=== PATIENT | female | born 1990 | race American Indian/Alaskan Native ===

== ENCOUNTER 2017-06-02 12:47 | Emergency (ER) | payer OTHER ==
[2017-06-02 12:47] VITALS: BMI 26.4
[2017-06-02 12:59] VITALS: RESP 18; O2SAT 100
[2017-06-02] MEDS ORDERED: Sodium Chloride 0.9% 1,000 ML IV ONE (13:21)
[2017-06-02 13:53] LABS: BASO # 0.1 K/uL (0.0-0.2); BASO % 0.7 % (0.0-2.0); EOS # 0.2 K/uL (0.0-0.7); EOS % 2.7 % (0.0-4.0); HEMATOCRIT 36.4 % (34.0-47.0); LYMPH # 3.1 K/uL (1.0-4.3); LYMPH % 39.6 % (20.0-40.0); MEAN CELL VOLUME 83.9 fL (81.0-99.0); MEAN CORPUSCULAR HEMOGLOBIN 27.4 pg (27.0-31.0); MEAN CORPUSCULAR HGB CONC 32.7 g/dL (33.0-37.0); MEAN PLATELET VOLUME 8.7 fL (7.2-11.7); MONO # 0.6 K/uL (0.0-0.8); MONO % 8.1 % (0.0-10.0); RED CELL DISTRIBUTION WIDTH 16.3 % (11.5-14.5); WHITE BLOOD COUNT 7.9 K/uL (4.8-10.8)
[2017-06-02] MEDS ORDERED: Sodium Chloride 0.9% 1,000 ML ONE (13:59)
[2017-06-02 14:04] LABS: RBC URINE 8 /hpf (0-3); URINE BACTERIA OCC (<OCC); URINE BILIRUBIN NEGATIVE (NEGATIVE); URINE BLOOD 2+ (NEGATIVE); URINE COLOR Yellow (YELLOW); URINE GLUCOSE (UA) NORMAL (Normal); URINE KETONE NEGATIVE (NEGATIVE); URINE LEUKOCYTE ESTERASE 2+ Leu/uL (Negative); URINE PROTEIN NEGATIVE (NEGATIVE); URINE UROBILINOGEN NORMAL mg/dL (0.2-1.0); WBC URINE 38 /hpf (0-5)
[2017-06-02 14:31] LABS: CHLORIDE 99 mmol/L (98-107); POTASSIUM 3.8 mmol/L (3.6-5.2); SODIUM 133 mmol/L (132-148)
[2017-06-02 14:33] LABS: BILIRUBIN,TOTAL 0.5 mg/dL (0.2-1.3); GFR AFRICAN-AMERICAN > 60
[2017-06-02 14:34] LABS: ALB/GLOB RATIO 1.1 (1.0-2.1); ALKALINE PHOSPHATASE 52 U/L (38-126); ALT/SGPT 34 U/L (9-52); AST/SGOT 30 U/L (14-36); BLOOD UREA NITROGEN 10 mg/dL (7-17); CALCIUM 8.8 mg/dl (8.6-10.4); CARBON DIOXIDE 24 mmol/L (22-30); GLUCOSE,RANDOM 85 mg/dL (65-105); TOTAL PROTEIN 7.8 g/dL (6.3-8.3)
--- NOTE | 2017-06-02 15:10 | C.PDOC ---
Time Seen by Provider: 06/02/17 13:11 Chief Complaint (Nursing): Abdominal Pain History Per: Patient Onset/Duration Of Symptoms: Days (4), Intermittent Episodes Current Symptoms Are (Timing): Still Present Severity: Moderate Location Of Pain/Discomfort: Epigastric, Suprapubic Quality Of Discomfort: Unable To Describe, "Pain" Associated Symptoms: Nausea, Constipation (?), Urinary Symptoms Alleviating Factors: None Recent travel outside of the [place]: No Additional History Per: Prior Records Abnormal Vaginal Bleeding: No Past Medical History Reviewed: Historical Data, Nursing Documentation, Vital Signs Vital Signs: Last Vital Signs Temp 98.5 F 06/02/17 12:55 Pulse 81 06/02/17 12:55 Resp 18 06/02/17 12:55 BP 125/87 06/02/17 12:55 Pulse Ox 100 06/02/17 12:55 - Medical History PMH: No Chronic Diseases Surgical History: No Surg Hx - [facility] Procedures ARTIF RUPT MEMBRANES NEC (06/17/13) EPISIOTOMY (06/17/13) Family History: States: Unknown Family Hx - Social History Hx Alcohol Use: Yes Hx Substance Use: No Review Of Systems Except As Marked, All Systems Reviewed And Found Negative. Constitutional: Negative for: Fever, Chills, Weakness Cardiovascular: Negative for: Chest Pain Respiratory: Negative for: Shortness of Breath Gastrointestinal: Positive for: Abdominal Pain. Negative for: Vomiting, Melena , Hematochezia, Hematemesis Genitourinary: Positive for: Frequency Musculoskeletal: Positive for: Back Pain. Negative for: Neck Pain Skin: Negative for: Rash Neurological: Negative for: Weakness, Numbness Physical Exam - Physical Exam Appears: Non-toxic, No Acute Distress Skin: Normal Color, Warm, Dry, No Rash Head: Atraumatic, Normacephalic Eye(s): bilateral: Normal Inspection, PERRL, EOMI Neck: Normal ROM, Supple Cardiovascular: Rhythm Regular Respiratory: Normal Breath Sounds, No Accessory Muscle Use Gastrointestinal/Abdominal: Soft, No Tenderness, No Distention Back: No CVA Tenderness Extremity: Normal ROM Neurological/Psych: Oriented x3, Normal Motor, Normal Sensation ED Course And Treatment - Laboratory Results Result Diagrams: 06/02/17 13:49 06/02/17 14:13 Interpretation Of Abnormal: UTI, urine C&S sent. Urine POC: Negative O2 Sat by Pulse Oximetry: 100 Pulse Ox Interpretation: Normal Progress - Interventions Interventions:: Observation, Intravenous fluid - Medications Administered Intravenous: Antiemetic, H-2 tejas - Data Reviewed Data Reviewed: Lab, Old records - Patient Status Patient status: Mostly improved - Continuity of Care Discussed patient case with:: Patient, ED Nurse - Patient Plan Patient Plan: Discharge, F/U with PCP Disposition Counseled Patient/Family Regarding: Studies Performed, Diagnosis, Need For Followup, Rx Given - Disposition Disposition: HOME/ ROUTINE Disposition Time: 15:14 Condition: IMPROVED Additional Instructions: Drink plenty of fluids. Follow up with your doctor this week. Return to the ER if you develop fever, chills, vomiting, worsening of symptoms or if you have any other concerns. Prescriptions: Ciprofloxacin [Cipro] 1 tab PO BID #14 tab Famotidine [Pepcid] 20 mg PO BID #30 tab Instructions: Urinary Tract Infection in Women (ED) - Clinical Impression Clinical Impression: Abdominal pain, UTI (urinary tract infection)
[2017-06-02] MEDS ORDERED: Alum-Mag Hydrox-Simethicone Susp (30 mL) PO STA (15:33)
[2017-06-02] MEDS ORDERED: Aluminum Hydroxide/Magnesium Hydroxide Susp (30 mL) ONE (15:35)
[2017-06-02 15:49] VITALS: BP 120/83; PULSE 59; TEMP 97.5
== END 2017-06-02 15:51 | disposition home or self-care (01) ==
LOC: C.ER 12:47
DX: N39.0 Urinary tract infection, site not specified (principal); R10.13 Epigastric pain
CPT/HCPCS: 80053; 81001; 83690; 84703; 85025; 87086; 87181; 96361; 96374; 96375; 99285; J2765; J7040

== ENCOUNTER 2017-10-09 14:28 | Emergency (ER) | payer OTHER ==
[2017-10-09 14:28] VITALS: BMI 26.4
[2017-10-09 14:47] VITALS: RESP 16; TEMP 98.3
--- NOTE | 2017-10-09 15:03 | C.PDOC ---
History Of Present Illness CC: "nausea and vomiting" HPI: 27 year old female at 12 weeks 4 days who presents to the ED for nausea and vomiting that started on Sunday. Patient states she has had nausea since July however she was able to eat. She states the last time she was able to keep food down was on Sunday. She states she has been vomiting about 8x per day since Sunday. She also states she has a headache that started on Sunday that is currently a 6/10 and at its worse it is a 10/10. She has tried taking Excedrin and Tylenol with minimal relief. She normally does not have headaches or migraines. She has not had care but she states she is trying to schedule an appointment with [facility]. She also states she has had a stinging pain when she urinates for the past 2 weeks. She tried going to the clinic but she could not be seen. She denies fever, hematuria, vaginal discharge, vaginal bleeding or odor. 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 denies: Fever, Chills, Diarrhea, Loss Of Appetite Abnormal Vaginal Bleeding: No Past Medical History Vital Signs: Last Vital Signs Temp 98.3 F 10/09/17 14:44 Pulse 109 H 10/09/17 14:44 Resp 16 10/09/17 14:44 BP 122/85 10/09/17 14:44 Pulse Ox 98 10/09/17 15:31 - [facility] Procedures ARTIF RUPT MEMBRANES NEC (06/17/13) EPISIOTOMY (06/17/13) Family History: States: Unknown Family Hx - Social History Hx Alcohol Use: No Hx Substance Use: No - Immunization History Hx Influenza Vaccination: No Review Of Systems Constitutional: Negative for: Fever, Chills, Sweats, Weakness Cardiovascular: Negative for: Chest Pain, Palpitations, Light Headedness Respiratory: Negative for: Cough, Shortness of Breath Gastrointestinal: Positive for: Nausea, Vomiting, Constipation. Negative for: Abdominal Pain, Diarrhea Genitourinary: Positive for: Dysuria, Frequency Neurological: Negative for: Dizziness Physical Exam - Physical Exam Appears: Well Skin: Normal Color Head: Atraumatic Eye(s): bilateral: Normal Inspection, PERRL, EOMI Oral Mucosa: Dry Cardiovascular: Rhythm Regular Respiratory: Normal Breath Sounds, No Accessory Muscle Use, No Rales, No Rhonchi , No Stridor, No Wheezing Gastrointestinal/Abdominal: Normal Exam, Bowel Sounds (normal), Soft, No Tenderness, No Distention, No Guarding Extremity: No Tenderness, No Pedal Edema, No Calf Tenderness Neurological/Psych: Oriented x3, Normal Speech, Normal Cognition ED Course And Treatment - Laboratory Results Result Diagrams: 10/09/17 16:20 10/09/17 16:20 O2 Sat by Pulse Oximetry: 98 Medical Decision Making Medical Decision Making: Nausea and Vomiting - Zofran 4mg IV once - IV fluids 1L Dysuria secondary to UTI - CBC WNL - UA: + WBC , +bacteria, + leukocyte esterase Hyponatremia secondary to vomiting - CMP: Na 131 Disposition Discussed With DrAna Laura: Anna Sauer Deepa - Disposition Disposition: HOME/ ROUTINE Disposition Time: 17:25 Condition: GOOD Additional Instructions: Patient is stable for discharge home. 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 Please return to the ED if symptoms return or worsen. Forms: [employer] (Yemeni) Print Language: HUNGARIAN - POA Present On Arrival: None - Clinical Impression Clinical Impression: Nausea & vomiting
[2017-10-09] MEDS ORDERED: Sodium Chloride 0.9% 1,000 ML IV ONE (15:24)
[2017-10-09 16:29] LABS: HEMOGLOBIN 12.7 g/dL (11.0-16.0); MEAN CELL VOLUME 83.8 fL (81.0-99.0); MEAN CORPUSCULAR HEMOGLOBIN 27.6 pg (27.0-31.0); MEAN CORPUSCULAR HGB CONC 32.9 g/dL (33.0-37.0); MEAN PLATELET VOLUME 8.8 fL (7.2-11.7); RBC 4.58 Mil/uL (3.80-5.20); RED CELL DISTRIBUTION WIDTH 14.4 % (11.5-14.5); WHITE BLOOD COUNT 9.8 K/uL (4.8-10.8)
[2017-10-09 16:45] LABS: SQUAMOUS EPITHIAL 37 /hpf (0-5); URINE BACTERIA OCC (<OCC); URINE BILIRUBIN NEGATIVE (NEGATIVE); URINE BLOOD 1+ (NEGATIVE); URINE CLARITY Hazy (Clear); URINE COLOR Yellow (YELLOW); URINE GLUCOSE (UA) NORMAL (Normal); URINE LEUKOCYTE ESTERASE 3+ Leu/uL (Negative); URINE NITRATE NEGATIVE (NEGATIVE); URINE PROTEIN 2+ mg/dL (NEGATIVE); URINE UROBILINOGEN NORMAL mg/dL (0.2-1.0)
[2017-10-09 16:57] LABS: ALB/GLOB RATIO 1.1 (1.0-2.1); ALBUMIN 4.3 g/dL (3.5-5.0); ALT/SGPT 25 U/L (9-52); AST/SGOT 22 U/L (14-36); BLOOD UREA NITROGEN 7 mg/dL (7-17); CALCIUM 9.4 mg/dl (8.6-10.4); GFR AFRICAN-AMERICAN > 60; GFR NON-AFRICAN AMERICAN > 60
[2017-10-09 17:26] VITALS: BP 102/68; PULSE 79
[2017-10-09 17:28] VITALS: O2SAT 98
== END 2017-10-09 17:31 | disposition home or self-care (01) ==
LOC: C.ER 14:28
DX: O21.9 Vomiting of pregnancy, unspecified (principal); Z3A.12 12 weeks gestation of pregnancy
CPT/HCPCS: 80053; 81001; 85027; 96361; 96374; 99285; J2405; J7040

== ENCOUNTER 2018-03-06 15:50 | Emergency (ER) | payer OTHER ==
[2018-03-06 15:50] VITALS: BMI 26.4
[2018-03-06 16:01] VITALS: BP 137/82; PULSE 84; RESP 16; TEMP 98.3; O2SAT 99
[2018-03-06 16:49] LABS: HCG,QUALITATIVE URINE NEGATIVE (NEGATIVE)
[2018-03-06 16:51] LABS: SQUAMOUS EPITHIAL 21 /hpf (0-5); URINE BILIRUBIN NEGATIVE (NEGATIVE); URINE BLOOD 2+ (NEGATIVE); URINE CLARITY Hazy (Clear); URINE COLOR Yellow (YELLOW); URINE GLUCOSE (UA) NORMAL (Normal); URINE LEUKOCYTE ESTERASE NEG Leu/uL (Negative); URINE PROTEIN NEGATIVE (NEGATIVE)
--- NOTE | 2018-03-06 16:56 | C.PDOC ---
History Of Present Illness 27 yo female come in for evaluation of Right sided chest wall [place] developed since yesterday " after I pushed my couch". Pt admits, pain is localized over Right anterior chest wall, reproducible and worse with movement. Pt also request evaluation of some suprapubic discomfort associated with pain on urination for past few days. Otherwise, pt denies fever, chills, headache, dizziness, CP, SOB, dyspnea, diaphoresis, palpitation, wheezing, abd. pain, N/V/ D, hematuria, back pain, vaginal irritation or discharges. Ambulate to Ed for evaluation, not in any apparent distress. Time Seen by Provider: 03/06/18 16:06 Chief Complaint (Nursing): Medical Clearance History Per: Patient Onset/Duration Of Symptoms: Gradual Past Medical History Reviewed: Historical Data, Nursing Documentation, Vital Signs Vital Signs: Last Vital Signs Temp 98.3 F 03/06/18 15:57 Pulse 84 03/06/18 15:57 Resp 16 03/06/18 15:57 BP 137/82 03/06/18 15:57 Pulse Ox 99 03/06/18 15:57 - Medical History PMH: No Chronic Diseases Surgical History: No Surg Hx - [facility] Procedures ARTIF RUPT MEMBRANES NEC (06/17/13) EPISIOTOMY (06/17/13) Family History: States: Unknown Family Hx - Social History Hx Alcohol Use: No Hx Substance Use: No - Immunization History Hx Influenza Vaccination: No Review Of Systems Except As Marked, All Systems Reviewed And Found Negative. Constitutional: Negative for: Fever, Chills ENT: Negative for: Throat Pain Cardiovascular: Positive for: Other (Right sided chest wall pain). Negative for : Chest Pain, Palpitations, Orthopnea, Edema, Light Headedness Respiratory: Negative for: Cough, Shortness of Breath, SOB with Excertion, Pleuritic Pain, Wheezing Gastrointestinal: Negative for: Nausea, Vomiting, Abdominal Pain, Diarrhea Genitourinary: Positive for: Dysuria. Negative for: Frequency, Incontinence, Vaginal Discharge, Vaginal Bleeding Musculoskeletal: Negative for: Neck Pain, Back Pain Skin: Negative for: Rash Neurological: Negative for: Weakness, Incoordination, Headache, Dizziness Physical Exam - Physical Exam Appears: Well, Non-toxic, No Acute Distress Skin: Normal Color, Warm, Dry, No Rash Head: Normacephalic Eye(s): bilateral: PERRL Nose: No Flaring Throat: No Erythema, No Drooling Neck: Normal ROM, Trachea Midline, No Midline Cervical Tenderness, No Paracervical Tenderness, No Step Off Deformity, Supple Chest: Symmetrical, No Deformity, Tenderness (mild tenderness over anterior aspect Right chest wall overlying 2-3 intercostal spaces. No edema, no palpable deformity, no skin changes.), No Ecchymosis, No Subcutaneous Emphysema Cardiovascular: Rhythm Regular, No Murmur, No JVD Respiratory: No Decreased Breath Sounds, No Accessory Muscle Use, No Stridor, No Wheezing Gastrointestinal/Abdominal: Soft, No Tenderness, No Distention, No Guarding, No Rebound Back: No CVA Tenderness Extremity: Normal ROM, No Deformity, No Swelling Neurological/Psych: Oriented x3, Normal Speech ED Course And Treatment - Laboratory Results Urine POC: Negative ECG: Interpreted By Me, Viewed By Me ECG Rhythm: Sinus Rhythm ECG Interpretation: Normal Interpretation Of ECG: SR@74/min, NAD, no acute t wave or ST-T changes. O2 Sat by Pulse Oximetry: 99 Pulse Ox Interpretation: Normal - Radiology CXR: Interpreted by Me, Viewed By Me CXR Interpretation: Yes: No Acute Disease Progress Note: On re-evaluation, pt is afebrile, hemodynamicaly stable. Non- toxic. PulseOx 99% RA. ENT: no acute findings,. neck: SUpple, (-) JVD. Lungs : CTA B/L, BS equal B/L. CVS: (+)S1S2, reg, (+) mild reproducible Right sided anterior chest wall tenderness. No skin changes, no palpable deformity. ABd: benign. Neurologicaly intact. CXR, EKG review- normal study. UA review (+) RBC, (-) WBC likely onset of menstrual period. Pt has clinical findings c/w right sided anterior chest wall strain. Pt advised on course of ds. ref. to f/ u with PMD in 2-3 days for re-evaluation. Disposition Counseled Patient/Family Regarding: Studies Performed, Diagnosis, Need For Followup, Rx Given - Disposition Referrals: [facility] [Outside] Disposition: HOME/ ROUTINE Disposition Time: 16:56 Condition: STABLE Additional Instructions: Light duty Avoid physical activity for 1 week Follow up with PMD in 2-3 days for re-evaluation. return if any new changes. Prescriptions: Ibuprofen [Motrin Tab] 600 mg PO BID #10 tab Instructions: Chest Pain, Muscle Strain - Clinical Impression Clinical Impression: Chest wall muscle strain
--- NOTE | 2018-03-06 17:27 | RAD ---
Date of service: 03/06/2018 HISTORY: pain COMPARISON: No prior. TECHNIQUE: Chest PA and lateral FINDINGS: LUNGS: No active pulmonary disease. PLEURA: No significant pleural effusion identified. No pneumothorax apparent. CARDIOVASCULAR: Normal. OSSEOUS STRUCTURES: No significant abnormalities. VISUALIZED UPPER ABDOMEN: Normal. OTHER FINDINGS: None. IMPRESSION: No active disease.
--- NOTE | 2018-03-08 12:22 | CARD ---
APPROVED REPORT Date of service: 03/06/2018 EKG Measurement Heart [id number] <Conclusion> Normal sinus rhythm Normal ECG
== END 2018-03-06 17:18 | disposition home or self-care (01) ==
LOC: C.ER 15:50
DX: S29.011A Strain of muscle and tendon of front wall of thorax, initial encounter (principal); X50.9XXA Other and unspecified overexertion or strenuous movements or postures, initial encounter

== ENCOUNTER 2018-07-27 09:50 | Emergency (ER) | payer OTHER ==
[2018-07-27 09:50] VITALS: BMI 26.4
[2018-07-27 10:02] VITALS: BP 129/85; PULSE 77; RESP 16; TEMP 98.9; O2SAT 98
--- NOTE | 2018-07-27 10:27 | C.PDOC ---
History Of Present Illness 28 y/o female c/o of pain on the upper upper mouth. Pt had a tooth removal by her the dentist for a broken tooth. pt taking ibuprofen 800 mg q3 hours for pain and applied a cold water bottle onto her right cheek with no reli ef. no facial swelling, fever or throat pain. Time Seen by Provider: 07/27/18 10:17 Chief Complaint (Nursing): Dental Pain History Per: Patient History/Exam Limitations: no limitations Onset/Duration Of Symptoms: Days (x2) Current Symptoms Are (Timing): Still Present Severity: Moderate Quality: Positive for: "Pain" Past Medical History Reviewed: Historical Data, Nursing Documentation, Vital Signs Vital Signs: Last Vital Signs Temp 98.9 F 07/27/18 10:01 Pulse 77 07/27/18 10:01 Resp 16 07/27/18 10:01 BP 129/85 07/27/18 10:01 Pulse Ox 98 07/27/18 10:01 - Medical History PMH: No Chronic Diseases - [facility] Procedures ARTIF RUPT MEMBRANES NEC (06/17/13) EPISIOTOMY (06/17/13) Family History: States: Unknown Family Hx - Social History Hx Alcohol Use: No Hx Substance Use: No - Immunization History Hx Influenza Vaccination: No Review Of Systems Constitutional: Negative for: Fever, Chills ENT: Positive for: Other (right upper mouth pain ). Negative for: Mouth Swelling, Throat Pain Skin: Negative for: Bruising Physical Exam - Physical Exam Appears: Non-toxic, Other (uncomfortable) Head: Atraumatic, Normacephalic, No Swelling Oral Mucosa: Moist Tongue: Normal Appearing Teeth: Other (missing RU 3rd molar) Gingiva: No Erythema, No Ulceration, Swelling (minimal swelling adjacent to site of extraction right upper), Tender (mild), No Bleeding, No Abscess 1 - Missing right upper 2nd molar Throat: Normal Neck: Normal ROM Neurological/Psych: Oriented x3, Normal Speech, Normal Cognition ED Course And Treatment O2 Sat by Pulse Oximetry: 98 (RA) Medical Decision Making Medical Decision Making: Impression: RU molar pain Plans: -- tylenol -- tylenol/codeine Reassess: Pt is resting comfortably. Pt is instructed on how to correctly take her prescribed ibuprofen and tylenol. Pt is encouraged to f/u with her dentist appointment Sunday. Disposition Counseled Patient/Family Regarding: Diagnosis, Need For Followup, Rx Given - Disposition Disposition: HOME/ ROUTINE Disposition Time: 10:51 Condition: GOOD Additional Instructions: Take ibuprofen 800 mg by mouth every 8 hours with food. Take Tylenol 650 mg with one Tylenol #3 (if needed for severe pain) every [address] hours[address] or working when taking Tylenol #3. Apply cold compress to face several times a day. Try over the counter Anbesol to painful area as well. Take antibiotics as prescribed. Follow up with your dentis on Sunday. 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 - Scribe Statement The provider has reviewed the documentation as recorded by the Wil Curiel Do All medical record entries made by the Scribe were at my direction and personally dictated by me. I have reviewed the chart and agree that the record accurately reflects my personal performance of the history, physical exam, medical decision making, and the department course for this patient. I have also personally directed, reviewed, and agree with the discharge instructions and disposition.
[2018-07-27] MEDS ORDERED: Acetaminophen-Codeine 300/30 mg Tab PO STA (10:35)
[2018-07-27] MEDS ORDERED: Acetaminophen-Codeine 300/30 mg Tab PO ONE (10:41)
== END 2018-07-27 11:02 | disposition home or self-care (01) ==
LOC: C.ER 09:50
DX: K08.89 Other specified disorders of teeth and supporting structures (principal)